=== PATIENT | male | born 1975 | race Caucasian/White ===

== ENCOUNTER 2023-11-09 05:40 | Emergency (ER) | payer BC, SELFPAY ==
--- NOTE | ~2023-11-09 | CT_ITS ---
Non-contrast CT scan of the Abdomen and Pelvis Clinical indication: Abdominal pain, hematuria Technique: 2.5 mm axial scans were obtained through the abdomen and pelvis without intravenous or or al contrast. Dose reduction technique was used on this scan by utilizing automated exposure control a nd iterative reconstruction technique. The dose-length product (DLP) was 958.41 mGy-cm. Findings: Images through the lung bases reveal no abnormalities. There is a 4-5 mm stone at the mid right ureter, with minimal right hydroureteronephrosis level. Ther e is mild right perinephric stranding. There are additional small bilateral obstructing renal stones. No left ureteral stone or left hydronephrosis. The liver, spleen, pancreas, gallbladder, and adrenals appear normal. There is no aortic aneurysm. There is no evidence of bowel obstruction. Images through the pelvis were performed. There is no evidence of ascites or lymphadenopathy. Urinary bladder unremarkable. No pelvic mass seen. No ascites. Impression: 4-5 mm mid right ureteral stone, with minimal right hydroureteronephrosis. Additional small bilateral nonobstructing renal stones. Reviewed, dictated and finalized at [facility] M. FA[employer]URING CONTROLLER Impression: 4-5 mm mid right ureteral stone, with minimal right hydroureteronephrosis. Additional small bilateral nonobstructing renal stones.
[2023-11-09 05:44] VITALS: BP 160/80; PULSE 72; RESP 15; TEMP 36.3; O2SAT 100
[2023-11-09 06:00] LABS: Basophils Absolute Auto 0.1 K/mm3 (0.0-0.1); Basophils Percent Auto 0.8 % (0.2-1.2); Eosinophils Absolute Auto 0.1 K/mm3 (0-0.3); Eosinophils Percent Auto 0.7 % (0-4.4); Hematocrit 46.4 % (42.0-52.0); Hemoglobin 15.9 g/dL (14.0-18.0); Immature Granulocyte Absolute 0.03 K/mm3 (0.00-0.031); Immature Granulocyte Percent A 0.3 % (0-0.5); Lymphocytes Absolute Auto 1.75 K/mm3 (0.9-3.2); Lymphocytes Percent Auto 17.6 % (18.3-44.2); Mean Corpuscular HGB Conc 34.3 g/dl (32-36); Mean Corpuscular Hemoglobin 30.8 pg (26-34); Mean Corpuscular Volume 89.7 fl (80-100); Monocytes Absolute Auto 0.5 K/mm3 (0.1-0.6); Monocytes Percent Auto 5.1 % (2.6-8.5); Neutrophils Absolute Auto 7.5 K/mm3 (1.3-6.7); Neutrophils Percent Auto 75.5 % (45.5-73.1); Platelet Count Result 261 k/mm3 (150-375); Red Blood Count 5.17 M/mm3 (4.6-6.20); Red Cell Distribution Width 11.7 % (11.5-14.5)
[2023-11-09 06:10] LABS: Alanine Aminotransferase 40 U/L (6-50); Albumin Level 4.7 g/dL (3.5-5.1); Alkaline Phosphatase 78 U/L (38-126); Anion Gap 11 mmol/L (8-16); Aspartate Amino Transferase 33 U/L (17-59); Bilirubin,Total 0.9 mg/dL (0.2-1.3); Blood Urea Nitrogen 19 mg/dL (9-20); Calcium 9.3 mg/dL (8.4-10.2); Carbon Dioxide 26 mmol/L (22-30); Chloride 103 mmol/L (98-107); Estimated CRCL calculation 91 ml/min; Estimated Glomerular Filt Rate > 60; Glucose 144 mg/dL (65-110); Lipase 66 U/L (23-300); Sodium 140 mmol/L (137-145)
[2023-11-09 07:43] VITALS: BP 155/89; PULSE 54; RESP 17; TEMP 36; O2SAT 100
[2023-11-09 08:32] LABS: Appearance Urine Cloudy (Clear); Bacteria Urine None Seen /hpf; Bilirubin Urine Negative (Negative); Blood Urine 3+ (Negative); Color Urine Yellow (Yellow); Glucose Urine UA Negative (Negative); Ketones Urine Negative (Negative); Leukocyte Esterase Ur Trace LEU/UL (Negative); Nitrate Urine Negative (Negative); Non Pathogenic Casts 0-2; Protein Urine Trace mg/dL (Negative); RBC Urine >100 /hpf (0-2); Specific Grav Ur 1.022 (1.001-1.035); Squamous Epithelial Cell Urine None seen /hpf (Few); Urobilinogen Urine 0.2 mg/dL (<2.0); WBC Urine 0-5 /hpf; pH Urine 5.5 (5.0-9.0)
[2023-11-09 08:33] LABS: Add Urine Microscopic? YES
--- NOTE | 2023-11-09 08:56 | ED.ABDPAIN ---
HPI - Abdominal Pain General Chief Complaint: Abdominal Pain Stated Complaint: abdominal pain Time Seen by Provider: 11/09/23 08:55 Source: patient Mode of arrival: ambulatory Limitations: no limitations History of Present Illness HPI narrative: Dandre is a 48-year-old male patient presenting to the clinic today with complaints of generalized abdominal pain and cramping since 3:00 a.m. this morning. He reports prior to having a bowel movement this morning he had not had a bowel movement for 3 days prior to that. Denies any fever or chills. Denies any urinary symptoms. No nausea or vomiting. Related Data Allergies Allergy/AdvReac Type Severity Reaction Status Date / Time No Known Allergies Allergy Verified 11/09/23 07:41 Review of Systems Review of Systems: Pertinent positives per HPI. Patient denies any fever, chills, rash, headache, visual changes, dizziness, cough, shortness of breath, chest pain, palpitations, nausea, vomiting, diarrhea, constipation, or any urinary issues. PMFSH Past Medical History Medical History Chronic low back pain with right-sided sciatica HLD (hyperlipidemia) ARMIDA (obstructive sleep apnea) Family History Family History Father Family history of diabetes mellitus in first degree relative Sibling Family history of diabetes mellitus in first degree relative Social History Social History Smoking status: Never smoker Second hand tobacco smoke exposure: No Alcohol intake: current Drinks per week: 5 Substance use: never Substance use type: does not use Living arrangements: with family Occupation/Education: occupation Gender identity (if verbalized by the patient): Male Sexual Orientation (if Verbalized by the Patient): Straight or Heterosexual Comments At the time of my signature, I reviewed and agree with the nursing past medical, surgical, social, and family history. There is no relevant family history pertinent to the patient complaint. Exam Narrative: General: Well-developed, well nourished, in no apparent distress. Head: Normocephalic, atraumatic. Cardio: Regular rate and rhythm, s1 and s2 normal, no murmur appreciated. Resp: Clear to auscultation bilaterally, no rhonchi, rales, wheezing or rubs. Abdomen: Soft, pliable, bowel sounds present in all quadrants, tender to palpation over the right upper quadrant, no organomegly, no CVAT tenderness. Course Course Emergency Course: Portions of this record may have been created with voice recognition software. Vital Signs Vital signs: Vital Signs Temperature 36.3 C L 11/09/23 05:44 Pulse Rate 72 11/09/23 05:44 Respiratory Rate 15 11/09/23 05:44 Blood Pressure 160/80 H 11/09/23 05:44 Pulse Oximetry 100 11/09/23 05:44 Oxygen Delivery Room Air 11/09/23 05:44 Temperature 36.0 C L 11/09/23 07:43 Pulse Rate 54 L 11/09/23 07:43 Respiratory Rate 17 11/09/23 07:43 Blood Pressure 155/89 H 11/09/23 07:43 Pulse Oximetry 100 11/09/23 07:43 Oxygen Delivery Room Air 11/09/23 05:44 Vital signs reviewed MDM - Abdominal Pain MDM Narrative Medical decision making narrative: At the time of visit patient is resting comfortably on the exam table. Patient appears to be nontoxic. Labs: CBC-white blood cell count is 10.0 with an H&H of 15.9 and hematocrit of 46.4, electrolytes are within normal limits with a blood glucose of 144 normal kidney function tests and liver function tests. Lipase is 66. Urinalysis is cloudy with 3+ blood trace of leukocytes and greater than 100 rbc's. Diagnostic test: CT abdomen and pelvis to rule out stone-patient has a right 4-5 mm ureteral stone in the mid ureter with minimal hydronephrosis Medications given: None Plan: Discharge home with Dalton, Zofran, and Flomax.
== END 2023-11-09 10:05 | disposition home or self-care (01) ==
PROVIDERS: Emergency Medicine; Emergency Provider Nurse Practitioner Family; PCP Family Medicine
DX: N20.1 Calculus of ureter (principal); E78.5 Hyperlipidemia, unspecified
CPT/HCPCS: 36415; 74176; 80053; 81001; 83690; 85025; 99284

== ENCOUNTER 2025-07-30 17:19 | Emergency (ER) | payer BC, SELFPAY ==
--- OUTSIDE RECORDS SUMMARY | 2024-10-13 05:20 | XMS_ITS ---
Author Organization [facility] Address [address] [place], [place] [id number] Care Team Providers Care Computer Artist Name Role Phone JUAN KENDRA Unavailable [phone] REASON FOR VISIT *Foot Pain Encounters Encounter Location Date Provider Diagnosis [facility] [address] [place], [place] [id number] 10/13/2024 KENDRA MARTINEZ Plan Of Treatment No Information Progress Notes * Dandre STONEDOB:1975 (49 yo M)Acc No.[id number]:10/13/2024 Progress Notes Patient: Dandre JOLLY Provider: Don MARTINEZ :1975 A ge:49 Y S ex:Male Date:10/13/2024 [address] [place], [id number] Subjective: * Chief Complaints: * 1 . *Foot Pain. * Medical History: Objective: * Vitals: Assessment: Plan: * Treatment: * Billing Information: * Visit Code: * Procedure Codes: * Electronic signature of ANTONIO MARTINEZ DPM on 07/30/2025 at 05:21 PM CDT Sign off status: Pending * Provider: Don MARTINEZ Date: 1 12/14/2023 Generated for Kolby mccarthy/Caleb/Margie on: 0 07/30/2025 05:21 PM CDT
--- OUTSIDE RECORDS SUMMARY | 2025-07-30 17:21 | XMS_ITS | Patient Health Record ---
Author Organization [facility] Address [address] [place], [place] [id number] Care Team Providers Care Masonry Contractor Name Role Phone KENDRA MARTINEZ Unavailable [phone] Reason For Referral No Information Plan Of Treatment No Information
--- OUTSIDE RECORDS SUMMARY | 2025-07-30 17:21 | XMS_ITS | Patient Health Record ---
Author Organization [facility] [employer] Address [address] [facility] [address] [place] [address] Support Name Relationship Address Phone KATALINA STONE Guarantor Unknown [phone] Reason For Referral No Information Plan Of Treatment No Information
--- OUTSIDE RECORDS SUMMARY | 2025-07-30 17:21 | XMS_ITS | Clinical Summary ---
Author Organization [facility] Address [facility] [place] [address] Care Team Providers Care Service Captain Name Role Phone Rakesh Briggs MD Primary Care Provider [phone] Allergies No known active allergies Medications methylPREDNISol one, LUZ, 4 MG tablet Medrol Dosepak as directed 1 each 06/15/2018 Active Active Problems No known active problems Family History Medical History Relation Comments Diabetes Father Hypertension Father Relation Status Comments Father Alive Mother Alive Social History Tobacco Use Types Packs/Day Years Used Date Smoking Tobacco: Former Cigarettes Smokeless Tobacco: Never Alcohol Use Standard Drinks/Week Comments Yes 5 (1 standard drink = 0.6 oz pur e alcohol) Sex and Gender Information Value Date Recorded Sex Assigned at Not on file Legal Sex Male 6:37 PM CDT Gender Identity Not on file Sexual Orientation Not on file Last Filed Vital Signs Vital Sign Reading Time Taken Comments Blood Pressure 138/69 06/15/2018 4:31 PM CDT Pulse 57 06/15/2018 4:31 PM CDT Temperature 36.8 C (98.2 F) 06/15/2018 4:31 PM CDT Respiratory Rate 16 06/15/2018 4:31 PM CDT Oxygen Saturation 98% 06/15/2018 4:31 PM CDT Inhaled Oxygen Concentration - - Weight 111.6 kg (246 lb) 06/15/2018 4:31 PM CDT Height 188 cm (6' 2) 06/15/2018 4:31 PM CDT Body Mass Index 31.58 06/15/2018 4:31 PM CDT Plan of Treatment Health Maintenance Due Date Last Done Comments Colorectal Cancer Screening Colonoscopy (10 Years) 1977 Annual Physical 1980 Hepatitis C 1995 DTaP, Tdap and Td Vaccines ( 1 - Tdap) 1996 Hepatitis B Vaccines (1 of 3 - 19+ 3-dose series) 1996 COVID-19 Vaccine (1 - 2023-2 5 season) 2025 Meningococcal B Vaccine Aged Out No l onger eligible based on patient's age to complete this topic Meningococcal Vaccine Aged Out No rosalie angela eligible based on patient's age to complete this topic Pneumococcal Vaccine: Pediat rics (0 to 5 Years) and At-Risk Patients (6 to 49 Years) Aged Out No longer eligible b ased on patient's age to complete this topic RSV Immunizations Under 20 Months Aged Out No longer eligible based on patient's age to complete this topic Insurance [facility] Care Teams Service Captain Relationship Specialty Start Date End Date Rakesh Briggs MD [address] [place] [address] PCP - General FAMILY PRACTICE 06/15/18
[2025-07-30 17:29] VITALS: BP 126/76; PULSE 59; RESP 18; TEMP 36.2; O2SAT 96
--- NOTE | 2025-07-30 17:37 | ED_ITS ---
HPI - Wound/Laceration General Chief Complaint: Wound/Laceration Stated Complaint: L hand middle finger cut Time Seen by Provider: 07/30/25 17:37 Source: patient, family, RN notes reviewed and old records reviewed Mode of arrival: ambulatory Limitations: no limitations History of Present Illness HPI narrative: 49 year old male accompanied by spouse with complaints of laceration to the left middle finger which occurred about 5 minutes prior to arrival when he was working on his deck cutting some material with an utility knife and it slipped and he cut his left middle dorsal finger in J linear formation from proximal finger along medial side of finger with no acute active bleeding. Patient has full mobility of his left finger,denies any tingling or numbness patient has strong capillary refill to nail bed and strong left radial pulse. Patient reports that he washed his finger off with peroxide and alcohol prior to arrival and gauze applied. Patient report that he was right hand dominant and his tetanus is up to date. Onset (ago): minute(s) (within past 45 minutes) Location: other (left middle finger) Place: home Patient tetanus UTD: Yes Treatments prior to arrival: bandage and other (cleansed with peroxide and alcohol) Related Data Allergies Allergy/AdvReac Type Severity Reaction Status Date / Time No Known Allergies Allergy Verified 07/30/25 17:30 Review of Systems Review of Systems: CONSTITUTIONAL: Denies fever, chills, or sweats. CARDIOVASCULAR: Denies chest pain, palpitations, or edema. RESPIRATORY: Denies cough or dyspnea. SKIN: Reports laceration to his left dorsal middle finger which occurred within 45 prior to arrival at home with an utility knife. MUSCULOSKELETAL: Denies musculoskeletal pain NEUROLOGIC: Denies numbness, or weakness. All systems reviewed & are unremarkable except as noted in HPI and below [facility] Past Medical History Medical History Lumbar spondylosis Chronic low back pain with right-sided sciatica ARMIDA (obstructive sleep apnea) HLD (hyperlipidemia) Family History Family History Father Family history of diabetes mellitus in first degree relative Sibling Family history of diabetes mellitus in first degree relative Social History Social History Social History: Smoking status: Never smoker Second hand tobacco smoke exposure: No Alcohol intake: former Substance use: never Substance use type: does not use Do You Feel Safe in your Home?: Yes Lack of Transportation: No Lack of Food: Never True Current Housing: I Have Housing Concerned About Future Housing: No Difficulty Paying Gas/Electric Bills: No Difficulty Paying for Meds: No Currently Unemployed: No Education: Don't Know Difficulty w/ Childcare or Family Care: No Living arrangements: with family Occupation/Education: occupation Gender identity (if verbalized by the patient): Male Sexual Orientation (if Verbalized by the Patient): Straight or Heterosexual Comments At time of signature, agree with nursing past medical, surgical, social and family history. There is no relevant family history pertinent to the presenting complaint Exam Narrative: GENERAL: Well-appearing, well-nourished, and in no acute distress. HEAD: Normocephalic, atraumatic. NECK: Supple. no lymphadenopathy CHEST: Clear to auscultation. No respiratory distress.SAO2 96% on room air HEART: Regular rate and rhythm. No murmur heard. Normal peripheral pulses. EXTREMITIES: Normal range of motion. No edema. SKIN: Warm, dry, no rash. Reports laceration to his left middle finger J formation with area proximal dorsal aspect finger 2cm across and 3cm medial aspect of dorsal finger with no acute actie bleeding noted, patient has full ROM of his middle finger, sensation and circulation is intact. NEURO: No focal deficits. Alert and oriented x3. Course Course Level of Care: Express Care Visit Vital Signs Vital signs: Vital Signs Temperature 36.2 C L 07/30/25 17:29 Pulse Rate 59 L 07/30/25 17:29 Respiratory Rate 18 07/30/25 17:29 Blood Pressure 126/76 07/30/25 17:29 Pulse Oximetry 96 07/30/25 17:29 Oxygen Delivery Room Air 07/30/25 17:29 Temperature 36.2 C L 07/30/25 17:29 Pulse Rate 59 L 07/30/25 17:29 Respiratory Rate 18 07/30/25 17:29 Blood Pressure 126/76 07/30/25 17:29 Pulse Oximetry 96 07/30/25 17:29 Oxygen Delivery Room Air 07/30/25 17:29 reviewed Procedures Laceration middle finger: Date: 07/30/25 Time: 17:50 Site: other (middle finger dorsal aspect) Side (If applicable): left Size (cm): 3 Description: linear (J form with 2cm proximal and 3 cm medial aspect of dorsal finger) Depth: simple, single layer Local Anesthetic: lidocaine 1% Amount of anesthesia used (mL): 6 Pre-repair: wound explored and irrigated extensively ====== Skin Level ====== Skin layer closed with: nylon Size (cm): 4-0 Number of sutures: 10 Technique: simple, interrupted ====== Subcutaneous Layer ====== ====== Muscle Layer ====== ====== Tendon Layer ====== Dressing: Wound to the left dorsal finger irrigated and cleansed with Skintegrity wound cleanser. finger rinsed with normal saline patted dry and localized with 6 ml of Lidocaine 1% with adequate localization achieved. Using Ethilon 4.0 suture 10 interrupted stitches applied to wound which is J shaped. Betadine swabs cleansing of wound followed by Telfa and Coban dressing.Metal finger splint sent home with patient for protection if working. Patient tolerated suturing well with no complaints voiced. MDM - Wound/Laceration MDM Narrative Medical decision making narrative: Wound explored for foreign body and copious irrigation provided with no evidence of FB. Discussed the potential of retained foreign body with the patient and signs/symptoms that should prompt the patient to immediately go to the ED for reevaluation. The wound was explored and no foreign bodies were found. There was no evidence of tendon or nerve lacerations. The wound was closed per procedure note. A sterile dressing was then applied and anticipatory guidance was provided. Tetanus prophylaxis was not given Differential Diagnosis Differential diagnosis: Likely laceration, abrasion, avulsion of skin and other (laceration of left middle finger) Critical Care Time Critical Care Time Critical Care Time: No Discharge Plan Discharge Clinical Impression: Laceration of left middle finger Qualifiers: Encounter type: initial encounter Damage to nail status: without damage Foreign body presence: without foreign body Qualified Code(s): S61.213A - Laceration without foreign body of left middle finger without damage to nail, initial encounter Patient Disposition: Home Condition: Stable Instructions: Antibiotic Form, Laceration (ED) Additional Instructions: Keep the area clean and dry No continuous water contact like dishes or swimming You may bathe and wash you hair caution with hair products or lotions Antibiotic ointment to the area 1 times a day of Bacitracin Tylenol or Ibuprofen for any pain or fevers dressing of choice watch for infection--redness, swelling, drainage follow up with PCP for suture/staple in removal *10 days recheck with PCP if further concerns or problems antibiotics as ordered complete all doses If your symptoms persist, change or worsen significantly before you can contact your personal physician then please, without delay, go to the emergency department for further evaluation. Follow-up with PCP in 7-10 days or sooner if needed finger splint sent with patient Patient Language: Mozambican Prescriptions: New cephalexin 500 mg capsule 500 mg PO Q8H Qty: 21 0RF bacitracin 500 unit/gram ointment 1 applic topical DAILY Qty: 14 0RF Follow-up/Referrals: Rakesh Briggs MD [Primary Care Provider, [facility]] Time of Disposition: 18:22 Quality [place] Coma Scale Eyes: Open Verbal: Oriented and Alert Motor: Follows Commands [place] Coma Total Score: 15
[2025-07-30] MEDS: LIDOCAINE 1% LOCAL INJ 2 ML AMPUL 8 ML INFILTRATE (17:42)
== END 2025-07-30 18:18 | disposition home or self-care (01) ==
PROVIDERS: Emergency Provider Registered Nurse; PCP Family Medicine
DX: S61.213A Laceration without foreign body of left middle finger without damage to nail, initial encounter (principal); W27.8XXA Contact with other nonpowered hand tool, initial encounter; E78.5 Hyperlipidemia, unspecified; M47.816 Spondylosis without myelopathy or radiculopathy, lumbar region
CPT/HCPCS: 12002; 99213; G0463; J2003